=== PATIENT | female | born 1965 | race Caucasian/White ===

== ENCOUNTER 2018-06-14 09:21 | Day surgery (SDC) | payer OTHER ==
[~2018-06-14 09:21] MED LIST: BUPIVACAINE 0.5% (SDV) 30 ML, morphine SULFATE (PF) 8 MG, EPINEPHrine 0.3 MG, KETOROLAC... IRR; CEFAZOLIN 2 GM/50 ML (PMX) 50 ML IVPB; DEXAMETHASONE 2 MG TAB PO; GABAPENTIN 300 MG CAP PO; GLYCOPYRROLATE 0.4 MG INJ; ROCURONIUM 50 MG INJ
[2018-06-14] MEDS ORDERED: ROPIVACAINE 0.5 % 30 ML VIAL (09:49)
[2018-06-14] MEDS ORDERED: PROPOFOL 100 ML (10:04)
[2018-06-14] MEDS: GABAPENTIN 300 MG CAP PO (10:05)
[2018-06-14] MEDS ORDERED: ROCURONIUM 50 MG INJ (10:05)
[2018-06-14] MEDS: DEXAMETHASONE 2 MG TAB PO (10:05)
[2018-06-14] MEDS: BUPIVACAINE 0.5% (SDV) 30 ML, morphine SULFATE (PF) 8 MG, EPINEPHrine 0.3 MG, KETOROLAC... IRR (10:38)
[2018-06-14] MEDS: ROPIVACAINE 0.5 % 30 ML VIAL INJ (10:38)
[2018-06-14] MEDS ORDERED: LABETALOL HCL 20MG INJ (10:41)
[2018-06-14] MEDS ORDERED: ONDANSETRON 4 MG INJ (10:52)
[2018-06-14] MEDS ORDERED: DEXAMETHASONE 4 MG/ML 1 ML INJ (10:52)
[2018-06-14] MEDS ORDERED: CEFAZOLIN 2 GM/50 ML (PMX) 50 ML IVPB (11:00)
[2018-06-14] MEDS ORDERED: NEOSTIGMINE 3 MG/3 ML SYRINGE (11:10)
[2018-06-14] MEDS ORDERED: GLYCOPYRROLATE 0.4 MG INJ (11:10)
[2018-06-14] MEDS ORDERED: KETOROLAC 30 MG INJ IV (11:30)
[2018-06-14] MEDS ORDERED: hydrALAzine 20 MG INJ IV (11:30)
[2018-06-14] MEDS ORDERED: METOCLOPRAMIDE 10 MG INJ IV (11:30)
[2018-06-14] MEDS ORDERED: FENTAnyl 50 MCG/ML VIAL IV ×3 (11:30)
[2018-06-14] MEDS ORDERED: MEPERIDINE 25 MG INJ IV (11:30)
[2018-06-14] MEDS ORDERED: EPHEDrine SULFATE 50 MG/5 ML SYG IV (11:30)
[2018-06-14] MEDS ORDERED: LABETALOL HCL 20MG INJ IV (11:30)
[2018-06-14] MEDS ORDERED: OXYCODONE/ACETAMINOPHEN (5/325) TAB PO ×2 (11:30)
[2018-06-14] MEDS ORDERED: DIPHENHYDRAMINE 50 MG INJ IV (11:30)
[2018-06-14] MEDS ORDERED: ALBUTEROL 0.083% (NEB) 2.5 MG/3 ML AMP HHN (11:30)
[2018-06-14] MEDS ORDERED: ONDANSETRON 4 MG INJ IV (11:30)
[2018-06-14] MEDS ORDERED: HYDROmorphONE 1 MG/5 ML IV SYRINGE IV ×3 (11:30)
== END 2018-06-14 12:45 | disposition home or self-care (01) ==
LOC: SDS 09:21
DX: M23.222 Derangement of posterior horn of medial meniscus due to old tear or injury, left knee (principal); M94.262 Chondromalacia, left knee
CPT/HCPCS: 29881; 84703